=== PATIENT | male | born 1945 | race Caucasian/White ===

== ENCOUNTER 2017-01-22 15:25 | Emergency (ER) | payer OTHER, BC ==
--- NOTE | 2017-01-22 15:30 | PDOC ---
History of Present Illness - General History Source: Patient Exam Limitations: No Limitations - History of Present Illness Initial Comments: 01/22/17 16:01 The patient is a 71 year old male, with significant past medical history of Afib (on coumadin), CHF s/p 5 stents, aortic valve replacement (2016), 2 MIs, and chronic inflammatory demyelinating polyneuropathy, who presents to the emergency room with RUQ pain starting this morning. The pain is sharp, constant , non radiating, 7/10 in severity, and exacerbated with movement such as walking. He notes that he was holding up a curtain kenan yesterday for some time, but denies any recent injury. He notes that he had 1 episode of diarrhea this morning, and has been having more diarrhea than usual over the past month. His last colonoscopy was about 2 years ago and was normal. Denies fever, chills, nausea, vomiting. Denies chest pain, SOB, cough. Denies back pain. Denies recent illness or sick contact. Allergies: none reported PCP- Dr. Ferrera <Georgia Veloz - Last Filed: 01/22/17 18:14> - General History Source: Patient Exam Limitations: No Limitations <Jerilyn Dee - Last Filed: 01/23/17 08:39> - General Chief Complaint: Pain Stated Complaint: ruq abd pain Time Seen by Provider: 01/22/17 15:29 Past History <Georgia Veloz - Last Filed: 01/22/17 18:14> <Jerilyn Dee - Last Filed: 01/23/17 08:39> - Past Medical History Allergies/Adverse Reactions: Allergies Allergy/AdvReac Type Severity Reaction Status Date / Time No Known Allergies Allergy Verified 01/22/17 15:26 Home Medications: Ambulatory Orders Primidone 250 mg PO BID tablet 06/13/12 Pyridoxine HCl [Vitamin B-6] 100 mg PO DAILY tablet 06/22/13 Furosemide [Lasix] 20 mg PO AM tablet 07/15/15 Propranolol HCl [Propranolol Hcl Er] 80 mg PO BID capsule 07/15/15 Cholecalciferol (Vitamin D3) [Vitamin D3] 1,000 unit PO DAILY capsule 06/22/16 Warfarin Sodium 7.5 mg PO ASDIR tablet 06/22/16 Warfarin Sodium 10 mg PO ASDIR tablet 02/17/17 Oxybutynin Chloride [Oxybutynin Chloride Er] 15 mg PO QOD tablet 10/08/16 Methocarbamol [Robaxin -] 500 mg PO BID #10 tablet 01/22/17 Review of Systems - Review of Systems Able to Perform ROS?: Yes Comments:: 01/22/17 16:01 GENERAL/CONSTITUTIONAL: No: fever, chills, weakness, loss of appetite. HEAD, EYES, EARS, NOSE AND THROAT: No: change in vision, ear pain, discharge, sore throat, throat swelling. CARDIOVASCULAR: No: chest pain, lightheadedness, palpitations, syncope RESPIRATORY: No: cough, shortness of breath, wheezing, hemoptysis, stridor. GASTROINTESTINAL: Yes: RUQ pain, and diarrhea. No: nausea, vomiting, abdominal cramping, rectal bleeding, constipation. GENITOURINARY: No: dysuria, hematuria, frequency, urgency, flank pain. MUSCULOSKELETAL: No: back pain, neck pain, joint pain, muscle swelling or pain SKIN: No: lesions, pallor, rash or easy bruising. NEUROLOGIC: No: headache, vertigo, paresthesias, weakness ENDOCRINE: No: unexplained weight gain or loss HEMATOLOGIC/LYMPHATIC: No: anemia, easy bleeding, swelling nodes <Georgia Veloz - Last Filed: 01/22/17 18:14> *Physical Exam - Vital Signs Last Vital Signs Temp Pulse Resp BP Pulse Ox 98.5 F 54 L 20 145/88 95 01/22/17 15:26 01/22/17 15:26 01/22/17 15:26 01/22/17 15:26 01/22/17 15:26 - Physical Exam Comments: 01/22/17 16:23 GENERAL: The patient is in no acute distress. HEAD: Normal with no signs of trauma. EYES: PERRLA, EOMI, sclera anicteric, conjunctiva clear. ENT: Ears normal, nares patent, oropharynx clear without exudates. Moist mucous membranes. NECK: Normal range of motion, supple without lymphadenopathy, JVD, or masses. LUNGS: Breath sounds equal, clear to auscultation bilaterally. No wheezes, and no crackles. HEART:Regular rate and rhythm, normal S1 and S2 without murmur, rub or gallop. ABDOMEN: +RUQ tenderness to palpation. +[place] sign. Soft, normoactive bowel sounds. No guarding. EXTREMITIES: Normal range of motion, no edema. No clubbing or cyanosis. No erythema, or tenderness. NEUROLOGICAL: Cranial nerves II through XII grossly intact. Normal speech. No focal neurological deficits. MUSCULOSKELETAL: Back nontender to palpation, no CVA tenderness SKIN: Warm, Dry, normal turgor, no rashes or lesions noted. <Georgia Veloz - Last Filed: 01/22/17 18:14> ED Treatment Course - LABORATORY CBC & Chemistry Diagram: 01/22/17 16:16 01/22/17 16:16 - RADIOLOGY Radiograph Interpretation: 01/22/17 18:15 EXAM#: TYPE/EXAM: RESULT: [id number] US/ABDOMEN US -LIMITED Right upper quadrant abdominal ultrasound Clinical information: evaluate for cholelithiasis Visualization is somewhat limited due to obscuring bowel gas. No definite gallbladder calculus is identified. A small amount of inspissated bile/sludge is seen within the gallbladder lumen. The gallbladder demonstrates nonspecific minimal to mild overdistention. Gallbladder wall thickness appears borderline. No pericholecystic fluid is noted. Early acute cholecystitis may not be demonstrable on sonography or CT. The common bile duct diameter appears within normal limits measuring 0.6 cm. A 0.7 cm left hepatic lobe cyst is noted. The right kidney and partially visualized pancreas demonstrate no obvious abnormality. No free intraperitoneal fluid is seen. Impression: No definite evidence of cholelithiasis. A small amount of inspissated bile/sludge is seen within the gallbladder. No definite biliary tract dilatation is identified. Reported By: Varinder Vail MD 01/22/17 [id number] <Georgia Veloz - Last Filed: 01/22/17 18:14> - LABORATORY CBC & Chemistry Diagram: 01/22/17 16:16 01/22/17 16:16 <Jerilyn Dee - Last Filed: 01/23/17 08:39> Medical Decision Making - Medical Decision Making 01/22/17 15:30 A portion of this note was documented by scribe services under my direction. I have reviewed the details of the note, within reason, and agree with the documentation with the following case summary and management plan written by me. Nursing documentation reviewed and incorporated into medical decision making 01/22/17 16:45 This patient is a 71-year-old male with a history of multiple medical problems including borderline diabetes, hypertension, hyperlipidemia, coronary artery disease status post stent 5, congestive heart failure. 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 He states his symptoms began after doing nothing in particular. No prior episodes like this. No fevers, no chills. No associated nausea, vomiting. No associated chest pain or shortness of breath. On examination: Patient has tenderness in the right upper quadrant, no involuntary guarding, no rebound. Patient has no lower abdominal tenderness. Patient skin demonstrates no lesions or blisters. Patient has no tenderness overlying the rib. Differential diagnosis includes: Musculoskeletal pain, rib injury, biliary colic, early herpes zoster, pneumonia , pleural effusion/pleurisy, PE Will do: Basic labs including INR (patient's last INR was 1.9 last saturday), Rib x ray U/S abd Tylenol for pain Re assess 01/22/17 17:12 Laboratory Tests 01/22/17 01/22/17 01/22/17 16:16 16:16 16:16 WBC 4.6 Hgb 15.8 Hct 45.9 Plt Count 179 Neutrophils % 58.9 Lymphocytes % 24.0 INR 2.21 H BUN 16 Creatinine 1.1 Total Bilirubin 0.6 D 01/22/17 17:23 U/S negative Rib series negative Will discharge to home <Jerilyn Dee - Last Filed: 01/23/17 08:39> *DC/Admit/Observation/Transfer - Attestations Scribe Attestion: 01/22/17 16:02 Documentation prepared by LUPILLO Pal, acting as medical record consultant for Jerilyn Dee MD. <Georgia Veloz - Last Filed: 01/22/17 18:14> - Discharge Dispostion Admit: No <Jerilyn Dee - Last Filed: 01/23/17 08:39> Diagnosis at time of Disposition: Abdominal pain Qualifiers: Abdominal location: right upper quadrant Qualified Code(s): R10.11 - Right upper quadrant pain - Discharge Dispostion Disposition: HOME Condition at time of disposition: Stable - Prescriptions Prescriptions: Methocarbamol [Robaxin -] 500 mg PO BID #10 tablet - Referrals Referrals: Piotr Ferrera MD [Staff Physician] - - Patient Instructions Printed Discharge Instructions: DI for Abdominal Muscle Strain Additional Instructions: Mr Douglas Thank you for coming in to the ER today Please return to the ER for any other concerns or complaints, new symptoms, persistent symptoms Please follow up with your primary care physician within 1 week
[2017-01-22 15:42] VITALS: BP 145/88; PULSE 54; TEMP 98.5; BMI 33.0
[2017-01-22] MEDS ORDERED: ACETAMINOPHEN 325 MG TABLET (FP) PO ONE (15:56)
[2017-01-22 16:38] LABS: INR 2.21 (0.82-1.09); PROTHROMBIN TIME (PATIENT) 24.4 SEC (10.2-13.0)
[2017-01-22 16:39] LABS: BASOPHIL 1.1 % (0-2.0); EOSINOPHIL 3.6 % (0-4.5); MCH 34.3 pg (25.7-33.7); MCHC 34.4 g/dl (32.0-35.9); MEAN CELL VOLUME 99.5 fl (80-96); MEAN PLT VOLUME 8.6 fl (7.5-11.1); NEUTROPHILS 58.9 % (42.8-82.8); PLATELET COUNT 179 K/MM3 (134-434); WHITE BLOOD COUNT 4.6 K/mm3 (4.0-10.8)
[2017-01-22 16:43] LABS: ALK PHOS 105 U/L (32-92); ANION GAP 8 (8-16); BILIRUBIN,TOTAL 0.6 mg/dl (0.2-1.0); CALCIUM 8.8 mg/dl (8.4-10.2); CO2 22 mmol/L (22-28); CREATININE 1.1 mg/dl (0.6-1.3); GLUCOSE,RANDOM 106 mg/dl (74-106); SGOT/AST 36 U/L (10-42); SGPT/ALT 35 U/L (10-40); TOT PROT 7.1 g/dl (6.4-8.3)
[2017-01-22] MEDS ORDERED: ACETAMINOPHEN 325 MG TABLET (FP) ONE (16:48)
== END 2017-01-22 18:16 | disposition home or self-care (01) ==
LOC: FER 15:25
DX: R10.11 Right upper quadrant pain (principal); I48.91 Unspecified atrial fibrillation; Z79.01 Long term (current) use of anticoagulants; Z95.5 Presence of coronary angioplasty implant and graft; I25.2 Old myocardial infarction; G61.81 Chronic inflammatory demyelinating polyneuritis
CPT/HCPCS: 36415; 71101-TC-RT; 76705-TC; 80053; 85025; 85610; 99283-25